=== PATIENT | female | born 1930 | race Caucasian/White ===

== ENCOUNTER → 2016-10-20 | Outpatient (CLI) | payer MEDICARE, BC ==
[2016-10-20 09:52] LABS: BUN/CREATININE RATIO 23 (0-10)
== END ==
LOC: RAD 08:40
PROVIDERS: Urology
DX: R31.1 Benign essential microscopic hematuria (principal); M89.9 Disorder of bone, unspecified
CPT/HCPCS: 36415; 74000; 80053; 87086

== ENCOUNTER 2020-07-22 18:45 | Emergency (ER) | payer MEDICARE, BC ==
[~2020-07-22 18:45] MED LIST: AUGMENTIN 875-1 EACH PO
[2020-07-22] MEDS ORDERED: HYDROCODON-ACE1 EAC4 PO (21:41)
== END 2020-07-22 22:30 | disposition home or self-care (01) ==
LOC: ER1 18:45
DX: S32.512A Fracture of superior rim of left pubis, initial encounter for closed fracture (principal); Z23 Encounter for immunization; W01.0XXA Fall on same level from slipping, tripping and stumbling without subsequent striking against object, initial encounter; Y92.009 Unspecified place in unspecified non-institutional (private) residence as the place of occurrence of the external cause
CPT/HCPCS: 72192; 73080; 73110; 73130; 73502; 90471; 90715; 99284

== ENCOUNTER → 2021-07-17 | Outpatient (CLI) | payer MEDICARE, BC ==
[~2021-07-17] MED LIST changes: +HYDROCODON-ACE1 EAC4 PO
== END ==
LOC: KOH-I 08:43
DX: M25.561 Pain in right knee (principal); M17.11 Unilateral primary osteoarthritis, right knee
CPT/HCPCS: 73562